=== PATIENT | female | born 1985 | race African-American/Black ===

== ENCOUNTER 2018-01-01 21:47 | Emergency (ER) | payer OTHER ==
[~2018-01-01] VITALS: Ht 167.6 cm; Wt 61.4 kg
[2018-01-02] MEDS ORDERED: MOTRIN600 MG PO (00:59)
[2018-01-02 01:16] VITALS: BP 109/70
== END 2018-01-02 01:16 | disposition home or self-care (01) ==
LOC: EME 21:47
DX: S63.612A Unspecified sprain of right middle finger, initial encounter (principal); W23.0XXA Caught, crushed, jammed, or pinched between moving objects, initial encounter; Y99.0 Civilian activity done for income or pay; S00.83XA Contusion of other part of head, initial encounter; W22.8XXA Striking against or struck by other objects, initial encounter
CPT/HCPCS: 73140; 99281; 99283